=== PATIENT | male | born 1950 ===

== ENCOUNTER 2023-01-07 11:15 | Emergency (ER) | payer SELFPAY ==
[2023-01-07 11:48] LABS: ANION GAP 18.9 mEq/L (7-13); CALCIUM 8.7 mg/dL (8.5-10.1); CREATININE 2.26 mg/dL (0.70-1.30); EST CRCL DRUG DOSING (CG) 26.66 mL/min; MAGNESIUM 1.3 mg/dL (1.8-2.4); POTASSIUM,K 2.9 mmol/L (3.5-5.1)
[2023-01-07] MEDS ORDERED: Potassium Chloride 20 MEQ in Premix Bag 1 BAG IV ONE (11:50)
[2023-01-07] MEDS ORDERED: Potassium Chloride 10 MEQ Tab.ER PO ONE ×2 (12:18→14:40)
[2023-01-07 14:37] LABS: CALCIUM 8.2 mg/dL (8.5-10.1); CREATININE 2.14 mg/dL (0.70-1.30); EST CRCL DRUG DOSING (CG) 28.16 mL/min
[2023-01-07] MEDS ORDERED: Magnesium Sulfate/Water 2 GM in Premix Bag 1 BAG IV ONE (14:39)
[2023-01-07] MEDS ORDERED: Carvedilol 6.25 MG Tab PO ONE (15:16)
== END 2023-01-07 17:10 | disposition home or self-care (01) ==
LOC: DL.ED 11:15
DX: E83.42 Hypomagnesemia (principal); E87.6 Hypokalemia
CPT/HCPCS: 36415; 80048; 83735; 96365; 96366; 96367; 99283; 99284; A9270; J3475; J3480

== ENCOUNTER 2024-11-24 10:31 | Emergency (ER) | payer MEDICARE, OTHER ==
[2024-11-24] MEDS: Iopamidol 755 Mg/ML 100 ML Bottle IVPUSH ONE (10:36)
[2024-11-24] MEDS ORDERED: Sodium Chloride 0.9% 10 ML Syringe FLUSH PRN (10:44)
[2024-11-24 10:52] LABS: BASOPHILS PERCENT AUTO 0.6 % (0.0-1.0); HEMATOCRIT 39.9 % (40.0-54.0); HEMOGLOBIN 13.8 g/dL (14.0-18.0); LYMPHOCYTES PERCENT AUTO 13.1 % (20.5-50.1); MEAN CORPUSCULAR HEMOGLOBIN 31.7 pg (27.0-34.0); MEAN CORPUSCULAR HGB CONC 34.6 g/dL (33.0-35.0); MEAN CORPUSCULAR VOLUME 91.5 fL (80-100); MONOCYTES PERCENT AUTO 8.1 % (2-8); NEUTROPHILS PERCENT AUTO 75.2 % (42.2-75.2); PLATELET COUNT,PLT 206 10^3/uL (150-450); RED BLOOD CELL COUNT 4.36 10^6/uL (4.6-6.2); WHITE BLOOD CELL COUNT,WBC 13.8 10^3/uL (5.0-10.0)
[2024-11-24 11:05] LABS: PROTHROMBIN TIME 10.3 SEC (9.0-12.0)
[2024-11-24 11:14] LABS: LACTIC ACID 2.1 mmol/L (0.4-2.0)
[2024-11-24 11:16] LABS: A/G RATIO 0.8; ALANINE AMINOTRANSFERASE,ALT 21 U/L (16-63); ALBUMIN 3.5 g/dL (3.4-5.0); ALKALINE PHOSPHATASE 101 U/L (46-116); ANION GAP 19.2 mEq/L (7-13); ASPARTATE AMNIOTRANSFERASE,AST 12 U/L (15-37); BILIRUBIN TOTAL 0.5 mg/dL (0.2-1.0); BLOOD UREA NITROGEN,BUN 53 mg/dL (7-18); BUN/CREATININE RATIO 10.8 (No establ ref range); CALCIUM 7.6 mg/dL (8.5-10.1); CARBON DIOXIDE,CO2 25 mmol/L (21-32); CHLORIDE,CL 105 mmol/L (98-107); GLUCOSE RANDOM 133 mg/dL (70-99); MAGNESIUM 1.5 mg/dL (1.8-2.4); POTASSIUM,K 3.2 mmol/L (3.5-5.1); PROTEIN TOTAL,TP 7.7 g/dL (6.4-8.2); SODIUM,NA 146 mmol/L (136-145); TSH ULTRASENSITIVE 1.05 uIU/mL (0.36-3.74)
[2024-11-24 11:17] LABS: CREATININE 4.91 mg/dL (0.70-1.30); ESTIMATED GFR 12 mL/min (>=60)
[2024-11-24 11:18] LABS: C-REACTIVE PROTEIN < 0.50 ng/dL (<=0.50); ETHANOL BLOOD MEDICAL < 3 mg/dL (0)
[2024-11-24] MEDS: Sodium Chloride 0.9% 1,000 ML IV ONE (11:21)
[2024-11-24] MEDS: Magnesium Sulf/Wat 2 GM/50 mL 2 GM in Premix Bag 1 BAG IV ONE (11:21)
[2024-11-24] MEDS: Tenecteplase 50 MG Kit IVPUSH ONE (11:59)
[2024-11-24] MEDS: NS with KCl 40mEq 1,000 ML IV SCH (12:06)
[2024-11-24] MEDS: Labetalol 20 MG/4 ML Syringe IVPUSH ONE (12:16)
== END 2024-11-24 12:25 ==
LOC: DL.ED 10:31
DX: I63.9 Cerebral infarction, unspecified (principal); N17.9 Acute kidney failure, unspecified; E83.42 Hypomagnesemia; I10 Essential (primary) hypertension; E11.9 Type 2 diabetes mellitus without complications
CPT/HCPCS: 36415; 37195; 70450; 70496; 70498; 80053; 80307; 82140; 82947; 83605; 83735; 84443; 84484; 85025; 85610; 85730; 86140; 93005; 93010; 96361; 96365; 96375; 99285; J1920; J3101; J3475; J3480; J7030; Q9967